=== PATIENT | female | born 2000 | race Caucasian/White ===

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

== ENCOUNTER → 2021-08-27 | Outpatient (CLI) | payer BC ==
[~2021-08-27] MED LIST: BACTROBAN OINT22 GM EXT
[2021-08-27 11:45] LABS: HEMOGLOBIN 13.6 gm/dl (12.3-15.3); RED BLOOD COUNT 4.73 M/UL (4.00-5.10); WHITE BLOOD COUNT 5.9 K/UL (4.5-11.0)
[2021-08-28 08:42] LABS: BUN/CREATININE RATIO 20 (0-10)
== END ==
LOC: LAB 11:01
PROVIDERS: Family Medicine
DX: Z13.220 Encounter for screening for lipoid disorders (principal); R53.83 Other fatigue; Z80.6 Family history of leukemia
CPT/HCPCS: 36415; 80053; 80061; 84439; 84443; 85025